=== PATIENT | female | born 1960 | race American Indian/Alaskan Native ===

== ENCOUNTER 2017-03-27 10:51 | Outpatient (CLI) | payer OTHER ==
--- NOTE | 2017-03-31 08:17 | XRay Report ---
BILATERAL HIPS WITH PELVIS, 3 VIEWS: History: Pain. Findings: Bone mineralization is within normal limits. There is no evidence for fracture, dislocation or pelvic diastasis. No advanced joint pathology is detected. The soft tissues are unremarkable. Impression: Unremarkable exam.
--- NOTE | 2017-04-10 09:42 | XRay Report ---
XRAY BILATERAL KNEE THREE VIEWS EACH: 03/27/17 10:51:00 CLINICAL: Bilateral knee pain. FINDINGS: Right: Moderate osteoarthritis. Minimal joint space narrowing but moderate size osteophytes involving the medial and lateral joint spaces and patellofemoral joint. No fracture or dislocation. No joint effusion. Normal soft tissues. Left: Moderate osteoarthritis. Minimal joint space narrowing but moderate size osteophytes involving the medial and lateral joint spaces and the patellofemoral joint. No fracture or dislocation. No joint effusion.Normal soft tissues. IMPRESSION: Moderate bilateral osteoarthritis involving the medial and lateral joint spaces and patellofemoral joints.
== END 2017-03-27 10:52 | disposition home or self-care (01) ==
LOC: SPVIMAG 10:51
PROVIDERS: ATTEND Family Medicine Adult Medicine
DX: M17.0 Bilateral primary osteoarthritis of knee (principal); M25.551 Pain in right hip; M25.552 Pain in left hip
CPT/HCPCS: 73521